=== PATIENT | male | born 1945 ===

== ENCOUNTER 2018-11-11 09:11 | Outpatient (CLI) | payer MEDICARE | END 2018-11-11 09:12 | disposition home or self-care (01) | LOC: C.PAT 09:11 | DX: K40.90 Unilateral inguinal hernia, without obstruction or gangrene, not specified as recurrent (principal) ==

== ENCOUNTER 2018-11-17 07:59 | Day surgery (SDC) | payer MEDICARE ==
[2018-11-17 09:08] VITALS: BMI 26.0
[2018-11-17] MEDS ORDERED: Propofol 10 mg/ml Inj (20 ML) ONE (10:24)
[2018-11-17] MEDS ORDERED: ceFAZolin 1 gm in NS 2 GM/200 ML BAG IVPB ONE (10:27)
[2018-11-17] MEDS ORDERED: Bupivacaine-Epi 0.5%-1:200,000 PF Inj ONE (10:54)
[2018-11-17] MEDS ORDERED: ePHEDrine 50 mg/ml Inj ONE (11:06)
[2018-11-17] MEDS ORDERED: HYDROmorphone 0.5 mg/0.5 ml ISec IVP PRN (12:03)
--- NOTE | 2018-11-17 12:05 | PCM.SURG1 ---
<Manny Burch - Last Filed: 11/17/18 12:02> Surgeon's Initial Post Op Note - Surgeon's Notes Surgeon: Dr. Blanchard Dry Kiln Operator Helper: Diego PGY4, Kiersten PGY2 Type of Anesthesia: General LMA, Local Anesthesia Administered By: Dr. Garcia Pre-Operative Diagnosis: Right inguinal hernia Operative Findings: indirect Right inguinal hernia with cord lipoma Post-Operative Diagnosis: Right inguinal hernia Operation Performed: Right inguinal hernia repair with mesh Specimen/Specimens Removed: cord lipoma Estimated Blood Loss: EBL {In ML}: 5 Blood Products Given: N/A Drains Used: No Drains Post-Op Condition: Good Date of Surgery/Procedure: 11/17/18 Time of Surgery/Procedure: 12:04 <Adonis Blanchard Jr. - Last Filed: 11/17/18 12:39> Surgeon's Initial Post Op Note - Surgeon's Notes Operation Performed: pHS prolene hernia system
[2018-11-17] MEDS ORDERED: Lactated Ringer's 1,000 ML IV ONE (13:30)
[2018-11-17 13:59] VITALS: O2SAT 97
[2018-11-17] MEDS ORDERED: Oxycodone/Acetaminophen 5/325 mg Tab PO PRN (14:05)
[2018-11-17 14:31] VITALS: BP 155/70; PULSE 71; RESP 18; TEMP 97.9
--- NOTE | 2018-11-17 15:13 | OP ---
PROCEDURE DATE: 11/17/2018 PREOPERATIVE DIAGNOSIS: Right inguinal hernia. POSTOPERATIVE DIAGNOSIS: Right inguinal hernia. PROCEDURE CARRIED OUT: Repair of right inguinal hernia with PHS Prolene hernia system, large. SURGEON: Adonis Blanchard Jr., MD ASSISTANTS: Luann Cortez DO and Manny Burch DO ANESTHESIOLOGIST: Dr. Garcia. INDICATIONS: The patient is an older middle-aged man with a symptomatic right inguinal hernia. OPERATIVE FINDINGS: Clinically, this felt like a direct hernia; however, operatively, it was a large sac with a large lipoma of the chord. DESCRIPTION OF PROCEDURE: The patient was given general anesthesia, intravenous antibiotics, Venodyne boots were applied. Standard skin prep including placement of Vi-Drape was carried out. We identified the cord and its contents. We identified the indirect sac. We reverted the sac. We also excised the lipoma. After this had been done, we then unfurled the PHS Prolene hernia system in the preperitoneal space and then tacked and sutured the rest of it down into the appropriate location. The skin was then closed after closing the external oblique with a subcuticular closure and Steri-Strips. Blood loss of the procedure was less than 20 mL. Marcaine was injected at the initiation of the procedure. Operation carried out, repair of right inguinal hernia. This is primarily an indirect inguinal hernia. Adonis Blanchard Jr., MD cc: Waqas Boston MD
== END 2018-11-17 14:34 | disposition home or self-care (01) ==
LOC: C.SDS 07:59
PROVIDERS: ATTEND Surgery Vascular Surgery
DX: K40.90 Unilateral inguinal hernia, without obstruction or gangrene, not specified as recurrent (principal); D17.6 Benign lipomatous neoplasm of spermatic cord
CPT/HCPCS: 49505; 88304; C1781; J0690; J1170; J2001; J2704; J3010; J7120